=== PATIENT | female | born 1975 | race Caucasian/White ===

== ENCOUNTER 2023-04-17 02:45 | Emergency (ER) | payer MEDICAID, OTHER ==
[~2023-04-17] VITALS: Ht 165.1 cm; Wt 74.8 kg
[2023-04-17] MEDS ORDERED: levETIRAcetam IV 500 MG in IV DEXTROSE 5% 100 ML IV ONE (03:00)
[2023-04-17] MEDS ORDERED: DEXTROSE 50% 50 ML DISP.SYRIN IV ONE (03:15)
[2023-04-17] MEDS ORDERED: levETIRAcetam 500 MG/5 ML VIAL IV ONE (03:23)
[2023-04-17] MEDS ORDERED: DEXTROSE 50% 50 ML DISP.SYRIN ONE (03:26)
[2023-04-17 03:51] LABS: BASOPHILS % (AUTO) 0.5 % (0.0-2.0); EOSINOPHILS # (AUTO) 0.1 K/uL (0.0-0.7); EOSINOPHILS % (AUTO) 2.1 % (0.0-7.0); HEMATOCRIT 32.8 % (31.2-41.9); HEMOGLOBIN 10.5 g/dL (10.9-14.3); LYMPHOCYTES # (AUTO) 2.1 K/uL (0.8-4.8); LYMPHOCYTES % (AUTO) 31.2 % (20.5-51.5); MEAN CORPUSCULAR HEMOGLOBIN 23.1 uug (24.7-32.8); MEAN CORPUSCULAR HGB CONC 32 g/dL (32.3-35.6); MEAN CORPUSCULAR VOLUME 72.4 fL (75.5-95.3); MONOCYTES # (AUTO) 0.6 K/uL (0.1-1.30); MONOCYTES % (AUTO) 8.4 % (0.0-11.0); NEUTROPHILS % (AUTO) 57.8 % (38.5-71.5); PLATELET COUNT (AUTO) 321 K/uL (179-408); RED BLOOD CELL COUNT(AUTO) 4.53 MIL/uL (3.63-4.92); RED CELL DISTRIBUTION WIDTH 19.2 % (12.3-17.7); WHITE BLOOD COUNT (AUTO) 6.9 K/uL (3.8-11.8)
[2023-04-17 04:00] LABS: DIFFERENTIAL COMMENT 1
[2023-04-17 04:03] LABS: CALCIUM 8.6 mg/dL (8.5-10.1); CARBON DIOXIDE 27 mmol/L (21-32); CHLORIDE 103 mmol/L (98-107); CREATININE 0.7 mg/dL (0.6-1.3); GLUCOSE 72 mg/dL (74-106); MAGNESIUM 1.5 mg/dL (1.8-2.4); SODIUM SERUM 140 mmol/L (136-145); UREA NITROGEN, BLOOD 15 mg/dL (7-18)
[2023-04-17 04:17] LABS: ALANINE AMINOTRANSFERASE 9 U/L (14-59); ALBUMIN 3.5 g/dL (3.4-5.0); ALKALINE PHOSPHATASE 56 U/L (50-136); ASPARTATE AMINOTRANSFERASE 10 U/L (15-37); BILIRUBIN,DIRECT 0.2 mg/dL (0.0-0.2); BILIRUBIN,TOTAL 0.6 mg/dL (0.2-1.0); VALPROIC ACID < 3 ug/mL (50-100)
[2023-04-17 04:20] LABS: PHENYTOIN (DILANTIN) < 0.5 ug/ml (10.0-20.0)
[2023-04-17 04:28] LABS: THYROID STIMULATING HORMONE 17.806 mIU/mL (0.358-3.740)
[2023-04-17] MEDS ORDERED: POTASSIUM CHLORIDE 20 MEQ TAB.PRT.SR PO ONE (04:30)
[2023-04-17] MEDS ORDERED: MAGNESIUM SULFATE/D5W 100 ML IV SCH (04:30)
[2023-04-17] MEDS ORDERED: MAGNESIUM SULFATE/D5W 100 ML ONE ×2 (04:31→04:44)
[2023-04-17] MEDS ORDERED: POTASSIUM CHLORIDE 20 MEQ TAB.PRT.SR ONE (04:31)
[2023-04-17 05:07] LABS: ANISOCYTOSIS 1+; EOSINOPHILS % (MANUAL) 2 % (0-8); HYPOCHROMASIA 1+; LYMPHOCYTES % (MANUAL) 39 % (20-40); MONOCYTES % (MANUAL) 11 % (2-10); NEUTROPHILS % (MANUAL) 48 % (42-75); PLATELET ESTIMATE ADEQUATE
[2023-04-17] MEDS ORDERED: MAGN400T26 PO (05:26)
[2023-04-17] MEDS ORDERED: POTA10CA43 PO (05:26)
[2023-04-17 06:24] VITALS: BP 119/74; TEMP 98; O2SAT 99
== END 2023-04-17 06:24 | disposition home or self-care (01) ==
LOC: EDBD 02:56 → ER 02:56
DX: R56.9 Unspecified convulsions (principal); E87.6 Hypokalemia; D64.9 Anemia, unspecified; E83.42 Hypomagnesemia; G93.41 Metabolic encephalopathy; E11.649 Type 2 diabetes mellitus with hypoglycemia without coma; E03.9 Hypothyroidism, unspecified
CPT/HCPCS: 99284; 96365; 96367; 96375; 80076; 80048; 80185; 83735; 84443; 80164; 85025; 84484; 36415; 93005; 83605; 82962 ×3; 85007; J3490; J1953 ×2; J3475 ×2; 70030-TC; A4663